=== PATIENT | female | born 1960 | race Hispanic/Latino ===

== ENCOUNTER 2024-11-20 10:00 | Day surgery (SDC) | payer OTHER ==
[2024-11-19 11:05] VITALS: BMI 29.4
[2024-11-20 10:40] LABS: Hematocrit 33.5 % (34.9-44.5)
[2024-11-20] MEDS ORDERED: PROPOFOL 20 ML ONE ×2 (11:58→14:14)
[2024-11-20] MEDS ORDERED: Ondansetron PF 4 MG/2 ML Vial ONE (11:58)
[2024-11-20] MEDS ORDERED: Dexamethasone 4 mg/ml Vial ONE (11:58)
[2024-11-20] MEDS ORDERED: Lidocaine 1% PF 5 ML VIAL ONE (11:58)
[2024-11-20] MEDS ORDERED: fentaNYL 50 mcg/mL 1 mL Vial ONE ×2 (11:58→12:52)
[2024-11-20] MEDS ORDERED: SUGAMMADEX SODIUM 200 MG/2 ML VIAL ONE (12:20)
[2024-11-20] MEDS ORDERED: EPINEPHrine 1 MG/ML VIAL ONE (12:46)
[2024-11-20] MEDS ORDERED: Ciprofloxacin 0.2% Otic (0.25ML CONTAINER) ONE ×2 (12:47→12:48)
[2024-11-20] MEDS ORDERED: Mupirocin 2% Ointment 22 GM Tube ONE (12:47)
[2024-11-20] MEDS ORDERED: Lidocaine 1% w/Epinephrine 1:200K 30 ML VIAL ONE (12:47)
[2024-11-20] MEDS ORDERED: Rocuronium Bromide 10 MG/ML (10ML VIAL) ONE (12:55)
[2024-11-20] MEDS ORDERED: ePHEDrine Sulfate 50 MG/10 ML VIAL ONE (13:36)
[2024-11-20] MEDS ORDERED: Glycopyrrolate 0.2 MG/ML 5 ML SYRINGE ONE (14:06)
[2024-11-20] MEDS ORDERED: PHENYLEPHRINE-NS 100 MCG/ML 10 ML SYRINGE ONE (14:07)
[2024-11-20] MEDS ORDERED: Hydrocodone-Acetamin 15 ML UDCUP ONE (15:34)
== END 2024-11-20 16:20 | disposition home or self-care (01) ==
LOC: CSHSDC 10:00
PROVIDERS: ATTEND Specialist
PROC: 09U Ear, Nose, Sinus, Supplement (ICD-10-PCS; principal; 2024-11-20)
DX: H72.92 Unspecified perforation of tympanic membrane, left ear (principal); I10 Essential (primary) hypertension; E78.5 Hyperlipidemia, unspecified; E11.9 Type 2 diabetes mellitus without complications; F17.210 Nicotine dependence, cigarettes, uncomplicated; H90.A32 Mixed conductive and sensorineural hearing loss, unilateral, left ear with restricted hearing on the contralateral side; H90.A21 Sensorineural hearing loss, unilateral, right ear, with restricted hearing on the contralateral side; H61.21 Impacted cerumen, right ear; Z79.4 Long term (current) use of insulin; Z98.49 Cataract extraction status, unspecified eye; Z79.84 Long term (current) use of oral hypoglycemic drugs; Z79.899 Other long term (current) drug therapy; Z90.89 Acquired absence of other organs
CPT/HCPCS: 36415; 36416; 85014; 93005; 93010; J0171; J1100; J2405; J2704; J3010